=== PATIENT | female | born 1970 ===

== ENCOUNTER → 2018-02-25 | Outpatient (CLI) | payer OTHER ==
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
== END ==
LOC: RAD 11:52
PROVIDERS: ATTEND Family Medicine
DX: S49.92XA Unspecified injury of left shoulder and upper arm, initial encounter (principal)